=== PATIENT | female | born 1975 | race Two or more races ===

== ENCOUNTER 2020-03-22 23:09 | Emergency (ER) | payer MEDICAID ==
[~2020-03-22] VITALS: Ht 170.2 cm; Wt 79.5 kg
[2020-03-22] MEDS ORDERED: ACETAMINOPHEN 500 MG TABLET PO ONE (23:45)
[2020-03-22 23:54] LABS: COVID AG,FIA SOURCE NASOPHARYNGEAL
[2020-03-23 00:18] LABS: INFLUENZA TYPE A NEGATIVE FOR TYPE A (NEGATIVE); INFLUENZA TYPE B NEGATIVE FOR TYPE B (NEGATIVE)
[2020-03-23] MEDS ORDERED: ALBUTEROL SULFATE HFA 90 MCG/PUFF 8 GM INHALER IH ONE (00:30)
[2020-03-23 00:46] VITALS: BP 135/95
== END 2020-03-23 00:46 | disposition home or self-care (01) ==
LOC: EMS 23:09
DX: U07.1 COVID-19 (principal); R05 Cough; R50.9 Fever, unspecified
CPT/HCPCS: 87426; 87804; 93005; 94640; J3535; 71045-TC